=== PATIENT | male | born 1980 | race Caucasian/White ===

== ENCOUNTER 2016-11-22 05:20 | Emergency (ER) | payer SELFPAY ==
[~2016-11-22] VITALS: Ht 180.3 cm; Wt 81.6 kg
[2016-11-22] MEDS ORDERED: HYDROMORPHONE 1 MG/1 ML DISP.SYRIN ONE (06:28)
[2016-11-22] MEDS ORDERED: IBUPROFEN 600 MG TABLET PO ONE ×2 (06:29→06:30)
[2016-11-22] MEDS ORDERED: SULFAMETH/TRIMETH 800/160 MG 1 UDTAB TABLET PO ONE ×2 (06:29→06:30)
[2016-11-22] MEDS ORDERED: LIDOCAINE 1%-EPI 1:100,000 20 ML VIAL TP ONE (06:30)
[2016-11-22] MEDS ORDERED: HYDROMORPHONE 1 MG/1 ML DISP.SYRIN IM ONE (06:30)
[2016-11-22 07:57] VITALS: BP 141/85
== END 2016-11-22 08:14 | disposition home or self-care (01) ==
LOC: ER 05:20
DX: L02.414 Cutaneous abscess of left upper limb (principal); F17.200 Nicotine dependence, unspecified, uncomplicated
CPT/HCPCS: 10160; 96372; 99284; A4606; J1170; Z7610